=== PATIENT | female | born 1985 | race African-American/Black ===

== ENCOUNTER 2017-12-08 09:58 | Outpatient (CLI) | payer OTHER ==
[~2017-12-08 09:58] MED LIST: ACET-689 PO; BENTYL10 MG PO; CETIRIZINE10 MG PO; FAMOTIDINE40 MG PO; HYDR25TA60 PO; MECLIZINE25 M1 PO; ONDA4TAB3 PO; PHENTERMINE37.5 MG PO; SPRINTEC 2828 DAY PO
== END 2017-12-08 21:57 | disposition home or self-care (01) ==
LOC: MRI 09:58
DX: M54.12 Radiculopathy, cervical region (principal)

== ENCOUNTER 2017-12-09 11:58 | Outpatient (CLI) | payer OTHER | END 2017-12-09 19:30 | disposition home or self-care (01) | LOC: LABW 11:58 | DX: N91.2 Amenorrhea, unspecified (principal) | CPT/HCPCS: 36415; 84702 ==

== ENCOUNTER 2020-02-07 10:36 | Outpatient (CLI) | payer OTHER | END 2020-02-07 22:31 | disposition home or self-care (01) | LOC: RAD 10:36 | DX: S69.91XA Unspecified injury of right wrist, hand and finger(s), initial encounter (principal) ==

== ENCOUNTER 2020-04-11 15:12 | Outpatient (CLI) | payer OTHER ==
[2020-04-11 15:42] LABS: PLATELET COUNT 203 K/uL (152-353)
== END 2020-04-11 20:00 | disposition home or self-care (01) ==
LOC: CT 15:12
PROVIDERS: ATTEND Nurse Practitioner Family
DX: R51.9 Headache, unspecified (principal)
CPT/HCPCS: 36415; 80053; 84443; 85027; 86318

== ENCOUNTER 2020-11-08 21:20 | Emergency (ER) | payer OTHER ==
[~2020-11-08] VITALS: Ht 154.9 cm; Wt 73.9 kg
[2020-11-08 21:28] VITALS: BP 141/96; TEMP 99
[2020-11-08 22:00] LABS: PLATELET COUNT 155 K/uL (152-353)
[2020-11-08 22:03] LABS: POTASSIUM 4.4 mmol/L (3.6-5.2)
== END 2020-11-08 23:20 | disposition home or self-care (01) ==
LOC: ED 21:20
PROVIDERS: Hospitalist
DX: U07.1 COVID-19 (principal); J06.9 Acute upper respiratory infection, unspecified
CPT/HCPCS: 80048; 85027; 87635; 87651; 99282; J1100; J1885; U0003

== ENCOUNTER 2021-12-09 14:00 | Emergency (ER) | payer OTHER ==
[~2021-12-09] VITALS: Ht 154.9 cm; Wt 79.4 kg
[2021-12-09 14:10] VITALS: TEMP 98.2
[2021-12-09 14:57] LABS: PLATELET COUNT 210 K/uL (152-353)
[2021-12-09 15:05] LABS: POTASSIUM 3.8 mmol/L (3.6-5.2); SODIUM 138 mmol/L (136-145)
[2021-12-09 17:00] VITALS: BP 121/87
== END 2021-12-09 17:13 | disposition home or self-care (01) ==
LOC: ED 14:00
PROVIDERS: Emergency Medicine Emergency Medical Services
DX: K21.9 Gastro-esophageal reflux disease without esophagitis (principal)
CPT/HCPCS: 36415; 80048; 81025; 84484; 85027; 85379; 93005; 96374; 99284; J3490

== ENCOUNTER 2022-12-10 09:48 | Outpatient (CLI) | payer OTHER | END 2022-12-10 21:19 | disposition home or self-care (01) | LOC: RAD 09:48 | PROVIDERS: ATTEND Nurse Practitioner Family | DX: R13.19 Other dysphagia (principal) ==